=== PATIENT | female | born 1970 | race African-American/Black ===

== ENCOUNTER 2024-04-16 14:04 | Inpatient (IN) | payer OTHER ==
[2024-04-16 14:43] VITALS: BMI 19.1
[2024-04-16] MEDS ORDERED: ONDANSETRON *ODT* 4 MG TABLET SL PRN (15:07)
[2024-04-16] MEDS ORDERED: POLYETHYLENE GLYCOL (HEALTHYLAX) 3350 17 GM PACKET PO PRN (15:07)
[2024-04-16] MEDS ORDERED: IBUPROFEN 400 MG TABLET (FP) PO PRN (15:07)
[2024-04-16] MEDS ORDERED: guaiFENesin 600 MG TABLET.ER (FP) PO PRN (15:07)
[2024-04-16] MEDS ORDERED: DICYCLOMINE HCL 10 MG CAPSULE PO PRN (15:07)
[2024-04-16] MEDS ORDERED: hydrOXYzine PAMOATE 25 MG CAPSULE (FP) PO PRN (15:07)
[2024-04-16] MEDS ORDERED: BENZONATATE 200 MG CAPSULE PO PRN (15:07)
[2024-04-16] MEDS ORDERED: NALOXONE HCL (KLOXXADO) 8 MG SPRAY NS PRN (15:07)
[2024-04-16] MEDS ORDERED: MAGNESIUM HYDROX 2400MG/30ML ORAL SUSPENSION 30 ML CUP PO PRN (15:07)
[2024-04-16] MEDS ORDERED: BISMUTH SUBSALICYLATE 524 MG/30 ML PO PRN (15:07)
[2024-04-16] MEDS ORDERED: MAG HYDROX/AL HYDROX/SIMETH 30 ML UNIT-DOSE CUP PO PRN (15:07)
[2024-04-16] MEDS ORDERED: NALOXONE HCL 0.4 MG/ML VIAL IM PRN (15:07)
[2024-04-16] MEDS ORDERED: BENZOCAINE/MENTHOL (CHLORASEPTIC ) LOZENGE MM PRN (15:07)
[2024-04-16] MEDS ORDERED: LOPERAMIDE HCL 2 MG CAPSULE PO PRN (15:07)
[2024-04-16] MEDS ORDERED: ALBUTEROL SO4 HFA INHALER IH PRN (16:05)
[2024-04-16] MEDS: NICOTINE 14 MG/24 HOURS TOPICAL PATCH TD SCH (18:49)
[2024-04-16] MEDS: PRENATAL VITAMINS W/ FOLIC ACID TABLET (FP) PO SCH (18:49)
[2024-04-16] MEDS: LORazepam 1 MG TABLET PO PRN (18:57)
[2024-04-16] MEDS: THIAMINE 100 MG TABLET PO SCH (22:36)
[2024-04-16] MEDS: MELATONIN 5 MG TABLETS PO SCH (22:36)
[2024-04-16] MEDS: LORazepam 2 MG TABLET PO SCH (22:39)
[2024-04-17] MEDS: ACETAMINOPHEN 325 MG TABLET (FP) PO PRN (03:40)
[2024-04-17] MEDS: METHOCARBAMOL 500 MG TABLET PO PRN (03:40)
[2024-04-17] MEDS: methaDONE HCL 40 MG DISPERSABLE TABLET PO SCH (09:43)
[2024-04-17 11:45] LABS: HEMATOCRIT 33.3 % (32.4-45.2); HEMOGLOBIN 10.7 GM/dL (10.7-15.3); MCHC 32.3 g/dl (32.0-36.0); MEAN CELL VOLUME 83.8 fl (80-96); MEAN PLT VOLUME 7.4 fl (7.5-11.1); PLATELET COUNT 235 10^3/uL (134-434); RBC 3.97 M/mm3 (3.60-5.2); RDW 14.2 % (11.6-15.6); WHITE BLOOD COUNT 2.9 K/mm3 (4.0-10.0)
[2024-04-17 11:47] LABS: CHLORIDE 103 mmol/L (98-107); POTASSIUM 3.9 mmol/L (3.5-5.1); SODIUM 137 mmol/L (136-145)
[2024-04-17 11:49] LABS: ALBUMIN 3.4 g/dl (3.4-5.0); ANION GAP 2 mmol/L (4-13); CALCIUM 8.7 mg/dL (8.5-10.1); CO2 33 mmol/L (21-32); GLUCOSE,RANDOM 85 mg/dL (74-106)
[2024-04-17 11:53] LABS: SGOT/AST 18 U/L (15-37); SGPT/ALT 27 U/L (13-61)
[2024-04-17 11:54] LABS: BILIRUBIN,TOTAL 0.3 mg/dL (0.2-1)
[2024-04-17 11:55] LABS: ALK PHOS 67 U/L (45-117)
[2024-04-17] MEDS ORDERED: VITAMINS A AND D TOPICAL OINTMENT TP PRN (19:46)
[2024-04-17] MEDS: QUEtiapine FUMARATE 50 MG TABLET PO SCH (21:05)
[2024-04-18] MEDS: LORazepam 1 MG TABLET PO SCH (05:45)
[2024-04-18] MEDS: IBUPROFEN 600 MG TABLET (FP) PO PRN (14:44)
[2024-04-18] MEDS: LACTULOSE 20 GM/30 ML UDC (FOR ORAL USE ONLY) PO SCH (14:44)
[2024-04-19] MEDS ORDERED: LORazepam 0.5 MG TABLET PO PRN
[2024-04-19] MEDS: LORazepam 0.5 MG TABLET PO SCH (05:22)
[2024-04-20] MEDS: LORazepam 0.5 MG TABLET PO ONE (05:17)
[2024-04-20 06:09] VITALS: RESP 16
[2024-04-20] MEDS: GABAPENTIN 100 MG CAPSULE PO ONE (17:32)
[2024-04-20] MEDS: GABAPENTIN 100 MG CAPSULE PO SCH (22:16)
[2024-04-20] MEDS: QUEtiapine FUMARATE 100 MG TABLET (FP) PO SCH (22:17)
[2024-04-21 13:01] VITALS: BP 123/74; PULSE 64; TEMP 97.7
== END 2024-04-21 13:23 | disposition other institution (70) | DRG 773 ==
LOC: YASAS 14:04 → Y3N 18:27
PROVIDERS: ADMIT Allergy & Immunology; ATTEND Surgery
PROC: HZ2ZZZZ Detoxification Services for Substance Abuse Treatment (ICD-10-PCS; principal; 2024-04-16)
DX: F10.230 Alcohol dependence with withdrawal, uncomplicated (principal); F14.20 Cocaine dependence, uncomplicated; F11.20 Opioid dependence, uncomplicated; F17.210 Nicotine dependence, cigarettes, uncomplicated; F31.9 Bipolar disorder, unspecified; F19.24 Other psychoactive substance dependence with psychoactive substance-induced mood disorder; E72.20 Disorder of urea cycle metabolism, unspecified; I10 Essential (primary) hypertension; J45.909 Unspecified asthma, uncomplicated
CPT/HCPCS: 36415; 80053; 80305; 80307; 81025; 82140; 85027; 86780; 87811; 93005; 93010

== ENCOUNTER 2024-04-21 13:35 | Inpatient (IN) | payer OTHER ==
[2024-04-21] MEDS: clonazePAM 1 MG ODT TABLETS SL SCH (14:35)
[2024-04-21] MEDS ORDERED: MAGNESIUM HYDROX 2400MG/30ML ORAL SUSPENSION 30 ML CUP PO PRN (15:13)
[2024-04-21] MEDS ORDERED: MAG HYDROX/AL HYDROX/SIMETH 30 ML UNIT-DOSE CUP PO PRN (15:13)
[2024-04-21] MEDS ORDERED: BENZOCAINE/MENTHOL (CHLORASEPTIC ) LOZENGE MM PRN (15:13)
[2024-04-21] MEDS ORDERED: NALOXONE (NYS OPIOID OVERDOSE PROGRAM) 4 MG/0.1 ML SPRAY NS PRN (15:13)
[2024-04-21] MEDS ORDERED: guaiFENesin 600 MG TABLET.ER (FP) PO PRN (15:13)
[2024-04-21] MEDS ORDERED: BENZONATATE 200 MG CAPSULE PO PRN (15:13)
[2024-04-21] MEDS ORDERED: POLYETHYLENE GLYCOL (HEALTHYLAX) 3350 17 GM PACKET PO PRN (15:13)
[2024-04-21] MEDS ORDERED: LOPERAMIDE HCL 2 MG CAPSULE PO PRN (15:13)
[2024-04-21] MEDS ORDERED: NALOXONE HCL 0.4 MG/ML VIAL IVPUSH PRN (15:13)
[2024-04-21] MEDS ORDERED: NICOTINE POLACRILEX 4 MG LOZENGE BC PRN (15:13)
[2024-04-21] MEDS ORDERED: ACETAMINOPHEN 325 MG TABLET (FP) PO PRN (15:13)
[2024-04-21] MEDS: THIAMINE 100 MG TABLET PO SCH (21:53)
[2024-04-21] MEDS: MELATONIN 5 MG TABLETS PO SCH (21:53)
[2024-04-21] MEDS: QUEtiapine FUMARATE 100 MG TABLET (FP) PO SCH (21:53)
[2024-04-21] MEDS: GABAPENTIN 100 MG CAPSULE PO SCH (21:53)
[2024-04-22] MEDS: methaDONE HCL 40 MG DISPERSABLE TABLET PO SCH (06:07)
[2024-04-22] MEDS: hydrOXYzine PAMOATE 25 MG CAPSULE (FP) PO PRN (07:48)
[2024-04-22] MEDS: PRENATAL VITAMINS W/ FOLIC ACID TABLET (FP) PO SCH (09:44)
[2024-04-22] MEDS: NICOTINE 7 MG/24 HOURS TOPICAL PATCH TD SCH (09:44)
[2024-04-22] MEDS: IBUPROFEN 600 MG TABLET (FP) PO PRN (16:57)
[2024-04-22] MEDS: METHOCARBAMOL 500 MG TABLET PO PRN (21:48)
[2024-04-22] MEDS: NICOTINE POLACRILEX 4 MG GUM BUC PRN (21:52)
[2024-04-23] MEDS ORDERED: GLY/DIMETH/PETROLAT,WHT/WATER (AVEENO) CREAM TP SCH (10:45)
[2024-04-23] MEDS: AMMONIUM LACTATE 12% LOTION 225 GM BOTTLE TP SCH (12:05)
[2024-04-23] MEDS: METHYL SALICYLATE/MENTHOL OINT 30 GM TUBE TP SCH (12:06)
[2024-04-23] MEDS ORDERED: ALBUTEROL SO4 HFA INHALER IH PRN ×2 (12:17→12:28)
[2024-04-23] MEDS: GABAPENTIN 300 MG CAPSULE PO SCH (21:35)
[2024-04-24] MEDS: SIMETHICONE 80 MG TAB.CHEW (FP) PO PRN (15:58)
[2024-04-24] MEDS: RIFAXIMIN 550 MG TABLET PO SCH (16:00)
[2024-04-24] MEDS: VITAMINS A AND D TOPICAL OINTMENT TP SCH (17:58)
[2024-04-27 11:56] LABS: INR 0.94 (0.83-1.09); PROTHROMBIN TIME (PATIENT) 10.6 SEC (9.7-13.0)
[2024-04-27 12:53] LABS: HIV INTERPRETATION NEGATIVE (NEGATIVE)
[2024-05-02] MEDS: IBUPROFEN 400 MG TABLET (FP) PO PRN (09:51)
[2024-05-04] MEDS ORDERED: LACTULOSE 20 GM/30 ML UDC (FOR ORAL USE ONLY) PO PRN (10:53)
[2024-05-04] MEDS: LACTULOSE 20 GM/30 ML UDC (FOR ORAL USE ONLY) PO SCH (12:27)
[2024-05-04] MEDS: clonazePAM 1 MG ODT TABLETS SL SCH (21:18)
[2024-05-08] MEDS: VITAMINS A AND D TOPICAL OINTMENT TP PRN (10:05)
[2024-05-14 06:43] VITALS: RESP 16; TEMP 97.4
[2024-05-14 09:15] VITALS: BP 124/72; PULSE 75
== END 2024-05-14 10:35 | disposition home or self-care (01) | DRG 772 ==
LOC: YASAS 13:35 → Y5N 13:37
PROVIDERS: ADMIT Allergy & Immunology; ATTEND Psychiatry & Neurology Pain Medicine
PROC: HZ42ZZZ Group Counseling for Substance Abuse Treatment, Cognitive-Behavioral (ICD-10-PCS; principal; 2024-04-21)
DX: F10.20 Alcohol dependence, uncomplicated (principal); F11.20 Opioid dependence, uncomplicated; F14.20 Cocaine dependence, uncomplicated; F17.210 Nicotine dependence, cigarettes, uncomplicated; F31.9 Bipolar disorder, unspecified; F19.24 Other psychoactive substance dependence with psychoactive substance-induced mood disorder; E72.20 Disorder of urea cycle metabolism, unspecified; I10 Essential (primary) hypertension; J45.909 Unspecified asthma, uncomplicated; L85.3 Xerosis cutis
CPT/HCPCS: 36415; 82140; 82652; 83735; 85610; 86803; 87389; 87522

== ENCOUNTER 2024-12-09 18:11 | Inpatient (IN) | payer OTHER ==
[2024-12-09 18:50] VITALS: BMI 17.3
[2024-12-09] MEDS ORDERED: IBUPROFEN 400 MG TABLET (FP) PO PRN (19:07)
[2024-12-09] MEDS ORDERED: DICYCLOMINE HCL 10 MG CAPSULE PO PRN (19:07)
[2024-12-09] MEDS ORDERED: NICOTINE POLACRILEX 4 MG LOZENGE BC PRN (19:07)
[2024-12-09] MEDS ORDERED: MAGNESIUM HYDROX 2400MG/30ML ORAL SUSPENSION 30 ML CUP PO PRN (19:07)
[2024-12-09] MEDS ORDERED: BISMUTH SUBSALICYLATE 524 MG/30 ML PO PRN (19:07)
[2024-12-09] MEDS ORDERED: ONDANSETRON *ODT* 4 MG TABLET SL PRN (19:07)
[2024-12-09] MEDS ORDERED: guaiFENesin 600 MG TABLET.ER (FP) PO PRN (19:07)
[2024-12-09] MEDS ORDERED: BENZOCAINE/MENTHOL (CHLORASEPTIC ) LOZENGE MM PRN (19:07)
[2024-12-09] MEDS ORDERED: BENZONATATE 200 MG CAPSULE PO PRN (19:07)
[2024-12-09] MEDS ORDERED: NALOXONE (NARCAN) HCL 4 MG/0.1 ML SPRAY NS PRN (19:07)
[2024-12-09] MEDS ORDERED: MAG HYDROX/AL HYDROX/SIMETH 30 ML UNIT-DOSE CUP PO PRN (19:07)
[2024-12-09] MEDS ORDERED: POLYETHYLENE GLYCOL (HEALTHYLAX) 3350 17 GM PACKET PO PRN (19:07)
[2024-12-09] MEDS ORDERED: LOPERAMIDE HCL 2 MG CAPSULE PO PRN (19:07)
[2024-12-09] MEDS: IBUPROFEN 600 MG TABLET (FP) PO PRN (20:33)
[2024-12-09] MEDS: THIAMINE 100 MG TABLET PO SCH (22:48)
[2024-12-09] MEDS: MELATONIN 5 MG TABLETS PO SCH (22:48)
[2024-12-09] MEDS: diazePAM 5 MG TABLET PO SCH (22:55)
[2024-12-10] MEDS: METHYL SALICYLATE/MENTHOL 30 GM TUBE TP SCH (10:08)
[2024-12-10] MEDS: amLODIPine BESYLATE 10 MG TABLET (FP) PO SCH (10:09)
[2024-12-10] MEDS: PRENATAL VITAMINS W/ FOLIC ACID TABLET (FP) PO SCH (10:09)
[2024-12-10] MEDS: methaDONE HCL 40 MG DISPERSABLE TABLET PO SCH (10:15)
[2024-12-10] MEDS: ALBUTEROL SO4 HFA INHALER IH SCH (11:00)
[2024-12-10 11:33] LABS: HEMATOCRIT 31.4 % (32.4-45.2); HEMOGLOBIN 10.2 GM/dL (10.7-15.3); MCH 27.6 pg (25.7-33.7); MCHC 32.5 g/dl (32.0-36.0); MEAN PLT VOLUME 7.6 fl (7.5-11.1); PLATELET COUNT 186 10^3/uL (134-434); RBC 3.69 M/mm3 (3.60-5.2); RDW 13.5 % (11.6-15.6); WHITE BLOOD COUNT 2.6 K/mm3 (4.0-10.0)
[2024-12-10 11:35] LABS: CHLORIDE 100 mmol/L (98-107); POTASSIUM 3.7 mmol/L (3.5-5.1); SODIUM 136 mmol/L (136-145)
[2024-12-10 11:53] LABS: ALBUMIN 3.3 g/dl (3.4-5.0); ANION GAP 7 mmol/L (4-13); CALCIUM 8.9 mg/dL (8.5-10.1); CO2 29 mmol/L (21-32); GLUCOSE,RANDOM 89 mg/dL (74-106)
[2024-12-10 11:55] LABS: SGOT/AST 37 U/L (15-37)
[2024-12-10 11:56] LABS: BILIRUBIN,TOTAL 0.7 mg/dL (0.2-1); CREATININE 1.1 mg/dL (0.55-1.3); TOT PROT 6.7 g/dl (6.4-8.2)
[2024-12-10 11:57] LABS: ALK PHOS 87 U/L (45-117); SGPT/ALT 34 U/L (13-61)
[2024-12-10] MEDS: METHOCARBAMOL 500 MG TABLET PO PRN (12:10)
[2024-12-10] MEDS: GABAPENTIN 300 MG CAPSULE PO SCH (14:09)
[2024-12-10] MEDS: QUEtiapine FUMARATE 100 MG TABLET (FP) PO SCH (22:17)
[2024-12-11] MEDS: diazePAM 5 MG TABLET PO SCH (05:28)
[2024-12-11] MEDS: diazePAM 5 MG TABLET PO PRN (18:09)
[2024-12-12] MEDS: diazePAM 5 MG TABLET PO SCH (05:45)
[2024-12-13] MEDS: diazePAM 5 MG TABLET PO ONE (05:30)
[2024-12-13] MEDS: NALOXONE (NYS OPIOID OVERDOSE PROGRAM) 4 MG/0.1 ML SPRAY NS SCH (11:37)
[2024-12-13] MEDS: diazePAM 5 MG TABLET PO SCH (17:51)
[2024-12-14] MEDS: NALOXONE (NYS OPIOID OVERDOSE PROGRAM) 4 MG/0.1 ML SPRAY NS SCH (10:42)
[2024-12-14] MEDS: hydrOXYzine PAMOATE 25 MG CAPSULE (FP) PO PRN (12:58)
[2024-12-14] MEDS: ACETAMINOPHEN 325 MG TABLET (FP) PO PRN (12:58)
[2024-12-14] MEDS: diazePAM 5 MG TABLET PO ONE (19:24)
[2024-12-15] MEDS: diazePAM 5 MG TABLET PO ONE (05:37)
[2024-12-15 08:56] VITALS: RESP 18; TEMP 97.7
[2024-12-15 13:03] VITALS: BP 123/78; PULSE 71
== END 2024-12-15 13:15 | disposition other institution (70) | DRG 773 ==
LOC: YASAS 18:11 → Y3N 19:58
PROVIDERS: ADMIT Allergy & Immunology; ATTEND Allergy & Immunology
PROC: HZ2ZZZZ Detoxification Services for Substance Abuse Treatment (ICD-10-PCS; principal; 2024-12-09)
DX: F10.230 Alcohol dependence with withdrawal, uncomplicated (principal); F11.20 Opioid dependence, uncomplicated; F14.20 Cocaine dependence, uncomplicated; F13.20 Sedative, hypnotic or anxiolytic dependence, uncomplicated; F17.210 Nicotine dependence, cigarettes, uncomplicated; F31.9 Bipolar disorder, unspecified; F19.24 Other psychoactive substance dependence with psychoactive substance-induced mood disorder; G47.00 Insomnia, unspecified; I10 Essential (primary) hypertension; J45.909 Unspecified asthma, uncomplicated
CPT/HCPCS: 36415; 73630-TC-RT-FY; 80053; 80307; 85027; 86780; 87811; 93005; 93010

== ENCOUNTER 2024-12-15 13:20 | Inpatient (IN) | payer OTHER ==
[2024-12-15 14:42] VITALS: BMI 17.6
[2024-12-15] MEDS ORDERED: guaiFENesin 600 MG TABLET.ER (FP) PO PRN (15:30)
[2024-12-15] MEDS ORDERED: NALOXONE (NARCAN) HCL 4 MG/0.1 ML SPRAY NS PRN (15:30)
[2024-12-15] MEDS ORDERED: POLYETHYLENE GLYCOL (HEALTHYLAX) 3350 17 GM PACKET PO PRN (15:30)
[2024-12-15] MEDS ORDERED: LOPERAMIDE HCL 2 MG CAPSULE PO PRN (15:30)
[2024-12-15] MEDS ORDERED: hydrOXYzine PAMOATE 25 MG CAPSULE (FP) PO PRN (15:30)
[2024-12-15] MEDS ORDERED: BENZONATATE 200 MG CAPSULE PO PRN (15:30)
[2024-12-15] MEDS ORDERED: ACETAMINOPHEN 325 MG TABLET (FP) PO PRN (15:30)
[2024-12-15] MEDS ORDERED: MAGNESIUM HYDROX 2400MG/30ML ORAL SUSPENSION 30 ML CUP PO PRN (15:30)
[2024-12-15] MEDS ORDERED: BENZOCAINE/MENTHOL (CHLORASEPTIC ) LOZENGE MM PRN (15:30)
[2024-12-15] MEDS ORDERED: NALOXONE HCL 0.4 MG/ML VIAL IVPUSH PRN (15:30)
[2024-12-15] MEDS: ALBUTEROL SO4 HFA INHALER IH SCH (15:50)
[2024-12-15] MEDS: GABAPENTIN 300 MG CAPSULE PO ONE (15:53)
[2024-12-15] MEDS: METHOCARBAMOL 500 MG TABLET PO PRN (17:35)
[2024-12-15] MEDS ORDERED: clonazePAM 1 MG ODT TABLETS SL SCH (20:00)
[2024-12-15] MEDS: clonazePAM 1 MG ODT TABLETS SL SCH (21:19)
[2024-12-15] MEDS: QUEtiapine FUMARATE 100 MG TABLET (FP) PO SCH (22:27)
[2024-12-15] MEDS: GABAPENTIN 300 MG CAPSULE PO SCH (22:27)
[2024-12-15] MEDS: MELATONIN 5 MG TABLETS PO SCH (22:27)
[2024-12-15] MEDS: THIAMINE 100 MG TABLET PO SCH (22:27)
[2024-12-16] MEDS: methaDONE HCL 40 MG DISPERSABLE TABLET PO SCH (05:10)
[2024-12-16] MEDS: hydrOXYzine PAMOATE 50 MG CAPSULE (FP) PO PRN (05:15)
[2024-12-16] MEDS: PRENATAL VITAMINS W/ FOLIC ACID TABLET (FP) PO SCH (10:06)
[2024-12-16] MEDS: amLODIPine BESYLATE 10 MG TABLET (FP) PO SCH (10:08)
[2024-12-16] MEDS: IBUPROFEN 600 MG TABLET (FP) PO PRN (10:09)
[2024-12-16] MEDS: MAG HYDROX/AL HYDROX/SIMETH 30 ML UNIT-DOSE CUP PO PRN (16:14)
[2024-12-16] MEDS: clonazePAM 1 MG ODT TABLETS SL ONE (22:22)
[2024-12-17] MEDS: clonazePAM 1 MG ODT TABLETS SL SCH (22:40)
[2024-12-18] MEDS: CLOTRIMAZOLE 1% CREAM TP SCH (14:52)
[2024-12-18] MEDS: MINERAL OIL/PETROLAT/WATER TOPICAL CREAM 113 GM JAR TP SCH (14:52)
[2024-12-19 09:21] LABS: BASO % 0.3 % (0-2.0); EOS % 4.2 % (0-4.5); HEMATOCRIT 31.7 % (32.4-45.2); HEMOGLOBIN 10.1 GM/dL (10.7-15.3); LYMPH % 45.4 % (8-40); MCH 27.2 pg (25.7-33.7); MCHC 31.7 g/dl (32.0-36.0); MEAN CELL VOLUME 85.9 fl (80-96); MEAN PLT VOLUME 7.7 fl (7.5-11.1); MONO % 9.1 % (3.8-10.2); PLATELET COUNT 181 10^3/uL (134-434); RBC 3.69 M/mm3 (3.60-5.2); RDW 14.6 % (11.6-15.6); WHITE BLOOD COUNT 3.6 K/mm3 (4.0-10.0)
[2024-12-19 09:22] LABS: POTASSIUM 4.4 mmol/L (3.5-5.1)
[2024-12-19 09:36] LABS: ALBUMIN 3.3 g/dl (3.4-5.0); BLOOD UREA NITROGEN 18.9 mg/dL (7-18)
[2024-12-19 09:39] LABS: CALCIUM 9.6 mg/dL (8.5-10.1); CREATININE 0.8 mg/dL (0.55-1.3)
[2024-12-19 09:42] LABS: BILIRUBIN,TOTAL 0.2 mg/dL (0.2-1); TOT PROT 6.7 g/dl (6.4-8.2)
[2024-12-19] MEDS: ALBUTEROL SO4 HFA INHALER IH PRN (21:32)
[2024-12-21] MEDS ORDERED: PETROLATUM, WHITE 30 GM TUBE TP SCH (15:45)
[2024-12-21] MEDS: ACAMPROSATE CALCIUM 333 MG TABLET.DR PO SCH (15:52)
[2024-12-21] MEDS: LIDOCAINE 4% PATCH TP SCH (15:52)
[2024-12-21] MEDS: LIDOCAINE PATCH REMOVAL MC SCH (21:35)
[2024-12-22 12:00] LABS: INR 0.99 (0.83-1.09); PROTHROMBIN TIME (PATIENT) 10.9 SEC (9.7-13.0)
[2024-12-23] MEDS: methaDONE HCL 40 MG DISPERSABLE TABLET PO SCH (06:34)
[2024-12-23] MEDS: CHOLECALCIFEROL (VIT D3) 1,000 UNIT (25 MCG) TABLET PO SCH (10:01)
[2024-12-23] MEDS: IBUPROFEN 400 MG TABLET (FP) PO PRN (17:36)
[2024-12-23] MEDS: clonazePAM 1 MG ODT TABLETS SL SCH (20:09)
[2024-12-24] MEDS: clonazePAM 1 MG ODT TABLETS SL SCH (07:54)
[2024-12-25] MEDS: LIDOCAINE 5% TOPICAL PATCH TP SCH (15:46)
[2024-12-25] MEDS: ACAMPROSATE CALCIUM 333 MG TABLET.DR PO SCH (17:06)
[2024-12-25] MEDS: LIDOCAINE PATCH REMOVAL MC SCH (21:14)
[2024-12-27] MEDS ORDERED: METHOCARBAMOL 750 MG TABLET PO PRN (10:28)
[2024-12-27] MEDS: METHOCARBAMOL 500 MG TABLET PO PRN (11:58)
[2024-12-28] MEDS: METHOCARBAMOL 500 MG TABLET PO PRN (17:46)
[2024-12-28] MEDS ORDERED: METHOCARBAMOL 500 MG TABLET PO SCH (22:00)
[2024-12-29] MEDS: NICOTINE POLACRILEX 2 MG GUM BUC PRN (12:59)
[2024-12-31] MEDS ORDERED: methaDONE HCL 10 MG TABLET PO SCH (06:00)
[2025-01-05] MEDS: clonazePAM 1 MG ODT TABLETS SL SCH (20:47)
[2025-01-06] MEDS: clonazePAM 1 MG ODT TABLETS SL SCH (07:42)
[2025-01-06] MEDS: METHYL SALICYLATE/MENTHOL 30 GM TUBE TP SCH (10:05)
[2025-01-06] MEDS: TOLNAFTATE 1% CREAM 15 GM TUBE TP SCH (10:34)
[2025-01-06] MEDS ORDERED: clonazePAM 1 MG ODT TABLETS SL SCH (20:00)
[2025-01-11 21:50] VITALS: RESP 18
[2025-01-13 06:48] VITALS: BP 117/79; PULSE 73; TEMP 97.5
== END 2025-01-13 11:25 | disposition other institution (70) | DRG 772 ==
LOC: YASAS 13:20 → Y3NR 13:22 → Y5N 12-18 14:33
PROVIDERS: ADMIT Psychiatry & Neurology Pain Medicine; ATTEND Psychiatry & Neurology Pain Medicine
PROC: HZ42ZZZ Group Counseling for Substance Abuse Treatment, Cognitive-Behavioral (ICD-10-PCS; principal; 2024-12-15)
DX: F10.20 Alcohol dependence, uncomplicated (principal); F14.20 Cocaine dependence, uncomplicated; F11.20 Opioid dependence, uncomplicated; F13.20 Sedative, hypnotic or anxiolytic dependence, uncomplicated; F17.210 Nicotine dependence, cigarettes, uncomplicated; F31.9 Bipolar disorder, unspecified; F19.280 Other psychoactive substance dependence with psychoactive substance-induced anxiety disorder; F19.24 Other psychoactive substance dependence with psychoactive substance-induced mood disorder; F41.0 Panic disorder [episodic paroxysmal anxiety]; I10 Essential (primary) hypertension; J45.909 Unspecified asthma, uncomplicated; B35.1 Tinea unguium; E55.9 Vitamin D deficiency, unspecified; R79.89 Other specified abnormal findings of blood chemistry; S92.531D Displaced fracture of distal phalanx of right lesser toe(s), subsequent encounter for fracture with routine healing; X58.XXXD Exposure to other specified factors, subsequent encounter; Z99.89 Dependence on other enabling machines and devices
CPT/HCPCS: 36415; 80053; 82140; 82272; 82306; 83735; 85025; 85610; 86803; 87522